=== PATIENT | female | born 1980 | race Hispanic/Latino ===

== ENCOUNTER → 2018-03-05 | Day surgery (SDC) | payer OTHER ==
[~2018-03-05] MED LIST: FENTANYL CITRATE/PF 100MCG/2 ML INJ ONE; PROPOFOL IV EMULSION 10 MG/ML 50 ML VIAL ONE; VASCEPA PO; VIT D2 PO; ZYRTEC-D TABLE1 EACH PO
--- OUTSIDE RECORDS SUMMARY | 2018-03-05 05:16 | XMS REPORT ---
[facility] Phone Unavailable Care Team Providers Care [employer] Name Role Phone Unavailable Unavailable Payers Payer Name Policy Type Policy Number Effective Date Expiration Date Problems This patient has no known problems. Allergies, Adverse Reactions, Alerts Allergy Name Allergy Type Status Severity Reaction(s) Onset Date Inactive Date Treating Clinician Comments No Known Allergies DA Active U 2018-01-15 00:00:00 No Known Drug Intolerances DA Active U 2009-07-05 00:00:00 Medications This patient has no known medications.
[2018-03-05 08:10] VITALS: BP 110/61
== END | disposition home or self-care (01) ==
LOC: OR 05:14
PROVIDERS: ATTEND Internal Medicine Gastroenterology
DX: K59.00 Constipation, unspecified (principal); K64.8 Other hemorrhoids; K76.0 Fatty (change of) liver, not elsewhere classified; Z71.3 Dietary counseling and surveillance; E66.01 Morbid (severe) obesity due to excess calories; G47.33 Obstructive sleep apnea (adult) (pediatric); I10 Essential (primary) hypertension; E78.5 Hyperlipidemia, unspecified; M54.9 Dorsalgia, unspecified; Z91.09 Other allergy status, other than to drugs and biological substances; Z68.41 Body mass index [BMI] 40.0-44.9, adult; Z80.0 Family history of malignant neoplasm of digestive organs
CPT/HCPCS: 45378; 81025